=== PATIENT | female | born 1945 | race Caucasian/White ===

== ENCOUNTER 2018-06-04 18:31 | Inpatient (IN) | payer MEDICARE ==
--- NOTE | 2018-06-04 19:26 | CT ---
CT OF HEAD NONCONTRAST: 06/04/18 INDICATIONS: Fall with head injury, pain. FINDINGS: Parenchymal volume loss is present. Ventricular system is age appropriate in size. There is no eviden ce of acute intracranial hemorrhage, mass effect, or midline shift. Calvarium is intact. No fluid lev el of the visualized paranasal sinuses. IMPRESSION: No acute intracranial hemorrhage or mass effect. Prominence of CHF related to parenchymal volume loss. POS: [facility]
--- NOTE | 2018-06-04 19:30 | CT ---
CT CERVICAL SPINE WITHOUT CONTRAST: 06/04/18 HISTORY: Injury. Trauma. Fall. COMPARISON: None. FINDINGS: There is severe degenerative changes of both temporomandibular joints. The odontoid process is intact . The occipital condyles are intact. Mild uncinate process hypertrophy from C3-C7. No acute fracture is appreciated of the cervical spine. Likely hemangioma within the right C7 vertebral body. There is scarring in both lung apices. IMPRESSION: Degenerative changes. No acute fracture or malalignment. POS: [facility]
--- NOTE | 2018-06-04 19:32 | RAD ---
CHEST ONE VIEW 06/04/18 HISTORY: Fall. Trauma. COMPARISON: None. FINDINGS: Lungs are hyperinflated. There appears to be some mild background pulmonary edema. Heart size is enla rged. Small left effusion. IMPRESSION: Cardiomegaly and mild pulmonary edema. POS: [facility]
[2018-06-04 19:36] LABS: #Basophils 0.1 thou/uL (0.0-0.2); #Eosinphils 0.1 thou/uL (0.0-0.7); #Lymphocytes 0.9 thou/uL (1.20-3.40); #Monocytes 0.4 thou/uL (0.11-0.59); #Neutrophils 8.8 thou/uL (1.40-6.50); %Basophils 0.7 % (0.0-1.0); %Eosinophils 0.6 % (0.0-10.0); %Lymphocytes 8.5 % (21.0-51.0); %Monocytes 3.6 % (0.0-10.0); %Neutrophils 86.5 % (42.0-75.0); Hemoglobin 14.5 g/dL (12.0-16.0); Mean Corpuscular HGB CONC 32.4 g/dL (32.0-36.0); Mean Corpuscular Hemoglobin 32.3 pg (27.0-31.0); Mean Corpuscular Volume 99.7 fL (78.0-98.0); Mean Platelet Volume 7.7 fL (7.4-10.4); Platelet Count 235 thou/uL (130-400); RBC Distribution Width 11.7 % (11.5-14.5); Red Blood Cell (RBC) Count 4.48 mill/uL (4.20-5.40); White Blood Cell (WBC) Count 10.2 thou/uL (4.8-10.8)
[2018-06-04 19:44] LABS: INR-International Normal Ratio 1.1; PTT 29.9 SEC (22.9-36.1); Prothrombin Time 13.8 SEC (12.0-14.7)
[2018-06-04 19:53] LABS: ALT (SGPT) 28 U/L (8-55); AST (SGOT) 38 U/L (5-34); Albumin 4.7 g/dL (3.4-4.8); Alkaline Phosphatase 66 U/L (40-150); Anion Gap 15 mmol/L (10-20); BUN (Urea Nitrogen) 18 mg/dL (9.8-20.1); Bilirubin, Total 0.9 mg/dL (0.2-1.2); Calc. Creatinine Clearance 0 mL/min (70-130); Calcium 10.3 mg/dL (7.8-10.44); Carbon Dioxide 24 mmol/L (23-31); Chloride 103 mmol/L (98-107); Estimated GFR-MDRD 68; Globulin 3.1 g/dL (2.4-3.5); Glucose 113 mg/dL (83-110); Potassium 4.3 mmol/L (3.5-5.1); Protein, Total 7.8 g/dL (6.0-8.3); Sodium 138 mmol/L (136-145)
--- NOTE | 2018-06-04 20:26 | RAD ---
THREE VIEW LEFT WRIST SERIES: 06/04/18 INDICATION: Injury, pain. 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 Osseous irregularity at the distal radius is c onsistent with a comminuted mildly displaced intra-articular fracture. There is blunting of the ulna r styloid. IMPRESSION: Comminuted mildly displaced and intra-articular distal radial fracture. 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 Recommend orthopedic consultation. POS: [facility]
--- NOTE | 2018-06-04 20:31 | RAD ---
THREE VIEW RIGHT WRIST: 06/04/18 CLINICAL HISTORY: Fall with injury and pain. FINDINGS: There is osteoarthritis preferentially involving the first CMC joint. No acute fracture. IMPRESSION: No acute osseous abnormality of the right wrist. POS: [facility]
[2018-06-04 20:42] LABS: Bilirubin Negative (Negative); Blood, Urine Negative (Negative); Clarity Clear (Clear); Glucose, Urine (Dipstick) Negative (Negative); Leukocyte Trace (Negative); Nitrite Negative (Negative); Protein, Urine (Dipstick) Negative (Neg-Trace); Specific Gravity, Urine 1.025 (1.005-1.030); Urobilinogen 0.2 mg/dL (0.2-1.0); pH, Urine 5.5 (5.0-9.0)
[2018-06-04 20:52] LABS: Hyaline Casts/LPF 0-3 HYALINE CAST LPF (0-3 Hyaline); RBC/HPF 0-3 HPF (0-3); Squamous Epithelial 0-3 HPF (0-3)
[2018-06-04 20:53] LABS: Bacteria/HPF Rare-Few HPF (None Seen)
[2018-06-04] MEDS ORDERED: Adacel (T-DAP) 0.5 ML SYRINGE ONE (22:45)
[2018-06-04 23:07] LABS: Troponin I Less than 0.010 ng/mL (< 0.028)
[2018-06-05] MEDS ORDERED: HYDROcodone/Acetaminophen 5/325 mg Tablet PO PRN (00:07)
[2018-06-05 00:40] VITALS: BMI 24.1
[2018-06-05] MEDS: HYDROcodone/Acetaminophen 5/325 mg Tablet PO PRN ×2 (01:15→07:20)
[2018-06-05] MEDS ORDERED: HYDROcodone/Acetaminophen 7.5/325 mg Tablet PO PRN (10:12)
[2018-06-05 10:44] LABS: #Basophils 0.1 thou/uL (0.0-0.2); #Lymphocytes 0.9 thou/uL (1.20-3.40); #Monocytes 0.8 thou/uL (0.11-0.59); #Neutrophils 6.1 thou/uL (1.40-6.50); %Basophils 0.6 % (0.0-1.0); %Eosinophils 0.5 % (0.0-10.0); %Lymphocytes 11.4 % (21.0-51.0); %Monocytes 9.6 % (0.0-10.0); %Neutrophils 77.8 % (42.0-75.0); Hemoglobin 12.8 g/dL (12.0-16.0); Mean Corpuscular HGB CONC 33.9 g/dL (32.0-36.0); Mean Corpuscular Hemoglobin 33.7 pg (27.0-31.0); Mean Corpuscular Volume 99.4 fL (78.0-98.0); Mean Platelet Volume 7.4 fL (7.4-10.4); Platelet Count 201 thou/uL (130-400); RBC Distribution Width 11.8 % (11.5-14.5); Red Blood Cell (RBC) Count 3.78 mill/uL (4.20-5.40); White Blood Cell (WBC) Count 7.9 thou/uL (4.8-10.8)
[2018-06-05 10:59] LABS: Anion Gap 14 mmol/L (10-20); BUN (Urea Nitrogen) 18 mg/dL (9.8-20.1); Calc. Creatinine Clearance 72 mL/min (70-130); Calcium 9.2 mg/dL (7.8-10.44); Carbon Dioxide 23 mmol/L (23-31); Chloride 103 mmol/L (98-107); Estimated GFR-MDRD 78; Glucose 144 mg/dL (83-110); Potassium 3.8 mmol/L (3.5-5.1); Sodium 136 mmol/L (136-145)
--- NOTE | 2018-06-05 11:34 | ULT ---
CAROTID DOPPLER ULTRASOUND: Date: 06/05/18 HISTORY: Syncope. COMPARISON: None. FINDINGS: There is antegrade flow to both vertebral arteries. No elevated peak systolic velocities. Right ICA/CCA ratio is 0.66. Left ICA/CCA ratio is 0.97. IMPRESSION: No hemodynamically significant stenosis. POS: [facility]
--- NOTE | 2018-06-05 13:12 | MRI ---
MRI BRAIN NONCONTRAST: Date: 06/05/18 HISTORY: Fall. Head injury. FINDINGS: There is no evidence of acute intracranial hemorrhage or infarct. Mild diffuse cortical atrophy is ag ain demonstrated. There is no mass effect or shift of midline structures. Visualized paranasal sinuse s remain well aerated. IMPRESSION: No acute intracranial abnormalities are demonstrated. POS: [facility]
[2018-06-05] MEDS: HYDROcodone/Acetaminophen 7.5/325 mg Tablet PO PRN (13:53)
--- NOTE | 2018-06-05 14:38 | HP ---
PRIMARY CARE PHYSICIAN: Out of town. CHIEF COMPLAINT: Syncope with fall. HISTORY OF PRESENT ILLNESS: Ms. Javier is a very pleasant 72-year-old female who was seen in the ER on 06/04/2018 after she apparently fell. Reports that she was walking her dog, had crossed the street near her daughter's house and does not remember anything else. She does not remember the fall. She does not remember any dizziness. She does not remember tripping. The next thing she remembers is she had managed to get back to her daughter's house, had unleashed the dog, had some temporary confusion, and then she said then, she noticed both her hands and wrists were painful. She noted some blood on her face when she went to go wash up, is when she said everything kind of came back into focus. The patient did fall on her face, has abrasions to both knees. Left wrist on x-rays, a comminuted, mildly displaced distal radial fracture. She has bruising on the lateral aspect of her right wrist. She has facial abrasions. The patient reports that she had put her teeth back into place, both anterior maxillary incisors. The patient underwent a cervical spine CT that showed degenerative changes, but no acute fracture or malalignment. Brain CT, no acute intracranial hemorrhage or mass effect. Prominence of CHF related to parenchymal volume loss. She also had a chest x-ray, which showed some cardiomegaly and mild pulmonary edema. Right wrist x-ray showed no acute osseous abnormality. Based on presentation history, the patient was admitted to the Observation Unit. Past medical history of relevance, the patient does have a history of atrial fibrillation and she is on Eliquis, and also takes sotalol, sulfasalazine, metoprolol to current medical management. The patient does report an echocardiogram in [place] close to a year ago, which she reports lab clerk said was fine. She does have a heart murmur that her lab clerk is monitoring. The patient does report a probable TIA within the last several years. Reports that she had double vision, and no other symptoms. Does report that she exercises every day typically, but she has been away from home and visiting her daughter and is not used to her exercise equipment. Reports that because she has not felt like she has not been exercising as she normally does, she did not quite have the stamina that she normally does. Reports some mild dizziness in the last several weeks. No changes to her medication for several years. PAST MEDICAL HISTORY: As above, atrial fibrillation, hypertension, microscopic colitis, TIA. FEMALE SURGICAL HISTORY: D and C's, she has had 40 years ago. SOCIAL HISTORY: The patient drinks wine every day, less than five drinks per day. Has no smoking history. Denies illicit drug use. PAST FAMILY HISTORY: She said her father in his 90s from a heart attack. Mother of cancer in her 60s. KNOWN ALLERGIES: None. CURRENT MEDICATIONS: 1. Sulfasalazine 250 mg b.i.d. 2. Sotalol 160 mg b.i.d. 3. Eliquis 2.5 mg b.i.d. 4. Metoprolol 25 mg b.i.d. 5. Lorazepam 0.5 mg as needed. 6. Loperamide 2 mg as needed. 7. Melatonin 3 mg once at bedtime. 8. Calcium citrate 500 mg once a day. 9. Coenzyme Q 100 mg once a day. REVIEW OF SYSTEMS: EYES: No eye pain. Does report a headache behind her eyes. Does have some ecchymosis around her left orbit. ENT: Reports some loose front teeth. Does have abrasions to her upper and lower lips. Denies sore throat. Denies rhinorrhea. CARDIOVASCULAR: Denies chest pain. Denies chest injury. Denies any palpitations. RESPIRATORY: Denies shortness of breath. Does report some tenderness to right lower chest wall. GASTROINTESTINAL: Denies any abdominal pain. No nausea, vomiting, diarrhea, or constipation. GENITOURINARY: Female. Denies any hematuria, hesitancy, urgency. MUSCULOSKELETAL: Reports pain in both wrists, pinky side of right hand, abrasions to bilateral knees. Denies any neck pain or injury. SKIN: Abrasions noted as above. NEUROLOGIC: The patient denies focal weakness, mental status changes, other than as mentioned above. PSYCH: Denies any changes. Denies any depression, anxiety, although she does report that she is a recent the does deal with bouts of grief. PHYSICAL EXAMINATION: VITAL SIGNS: Temperature is 99.3, pulse 64, respirations 14, pulse ox is 92% on room air, blood pressure 122/46. CONSTITUTIONAL: The patient is in no apparent distress. Does appear in mild pain distress, primarily to face. Abrasions, left wrist. HEENT: Head is atraumatic and normocephalic. Abrasions as mentioned above. Eyes, eyelids, left eyelid in particular is swollen. Pupils are equally round and reactive to light. Extraocular muscles are intact. There is no ocular trauma. Does have abrasions and some ecchymosis noted below the left orbit. ENT, mucous membranes are normal. Ecchymosis to inner upper and lower lip. Injured teeth as noted above, which are mildly loose, but put back into place. Does have a tiny chip on right incisor. Two vertical lacerations on the forehead 2 cm in length. They were well-approximated. Upper and lower lips are abraded and bruised with some punctate lacerations to the upper lip with some deep abrasions. No visible foreign body or deep injury. Mild abrasion on the top of her nose. NECK: Normal range of motion. Trachea is midline. RESPIRATORY EXAM: No respiratory distress. Breath sounds are clear. CARDIOVASCULAR: Normal sinus, regular rate and rhythm. Heart murmur is noted. ABDOMEN: Soft, nontender. PELVIC: No tenderness to bilateral iliac crest pressure. Full range of motion. BACK: No tenderness or percussion to entire spine. EXTREMITIES: Upper extremity, focal swelling at the ulnar right wrist and ecchymosis tenderness ulnar and radial left wrist, which is currently in a splint. Lower extremity, superficial abrasions to both anterior knees. Full range of motion. No laxity at either knee is noted. Full strength. Pulses are equal bilaterally. No pedal edema is noted. NEURO: Normal mental status. Normal orientation. Is oriented to person, place, and time. No focal motor or sensory deficits. SKIN: Warm, dry, and intact. Abrasions as noted above. LABORATORY DATA: EKG; the patient is in normal sinus rhythm, beats per minute were 67. [place] is normal. Nonspecific T-wave abnormality. Pertinent labs; urine positive for ketones, trace leukocyte esterase, white blood cell 4 to 6, bacteria rare. Urine will be sent off for culture. Sodium is 138, potassium 4.3, gap is 15, BUN is 18, creatinine is 0.82, estimated GFR is 68, glucose 113, calcium 10.3. Troponin x3 are undetectable. Liver enzymes are unremarkable. Coag, PT is 13.81. INR is 1.1. APTT is 29.9. White blood cell count 10.2, hemoglobin 14.5, hematocrit 44.6, MCV 99.7, MCH 32.3. PLAN AND ASSESSMENT: 1. Syncope. Based on her history within the last two years of a transient ischemic attack, we will order an MRI of the brain, also carotid ultrasound, and echocardiogram. We will ask Cardiology to consult. 2. Distal radial fracture of the left arm. We will continue the patient in a splint. We will elevate, off her pain medication. 3. Hypertension. We will continue home medications. We will trend orthostatic vital signs. 4. History of atrial fibrillation. We will continue Eliquis. 5. Hospital course will be dependent on clinical findings. Job ID: [id number]
[2018-06-05] MEDS: Ondansetron PF 4 MG/2 ML Vial IVP PRN (16:39)
[2018-06-05] MEDS ORDERED: Apixaban 2.5 MG TAB PO SCH (21:00)
[2018-06-05] MEDS: diphenhydrAMINE 12.5 MG/5 ML UDCUP PO SCH (21:08)
[2018-06-05] MEDS: sulfaSALAzine 500 MG TAB PO SCH (21:08)
[2018-06-05] MEDS: Sotalol HCl 80 MG TAB PO SCH (21:09)
[2018-06-05] MEDS: Lorazepam 0.5 MG TAB PO SCH (21:09)
[2018-06-05] MEDS: Melatonin 3 MG TAB PO SCH (21:10)
[2018-06-05] MEDS: Loperamide HCl 2 MG CAP PO SCH (21:10)
[2018-06-05] MEDS: Famotidine 20 MG TAB PO SCH (21:11)
--- NOTE | 2018-06-05 21:34 | CON ---
DATE OF CONSULTATION: 06/05/2018 REASON FOR CONSULTATION: 72-year-old female with syncope. HISTORY OF PRESENT ILLNESS: This very unfortunate 72-year-old female with a history of atrial fibrillation which has been intermittent, been followed by a application analyst in [place]. She has been living here for about last one month with her daughter. She was out walking the dog yesterday when she had no recollection of what happened, but then she did not even remember going home, but apparently she fell and had a syncopal episode. She then went home and noted she had blood all over her face and had significant problems. She pushed her teeth in and had abrasions on her knees and had significant perioral abrasions as well as across the bridge of her nose and was brought to the emergency room. She has had in the past some lightheadedness and shortness of breath. She has atrial fibrillation, for which she has been treated with sotalol as well as metoprolol. She is on 160 mg b.i.d. of sotalol. She tells me that she has had about 4 months ago an echocardiogram which showed that she had aortic valve problem, which I suspect is aortic valve regurgitation and she has not had any other significant abnormalities. She had stress testing many years ago, but has had none recently, but she denies any chest pain. She has been exercising recently and was on elliptical at home, but not had any significant shortness of breath. She does get mildly short of breath, but not enough that would indicate any severe aortic valve stenosis. PAST MEDICAL HISTORY: Significant for atrial fibrillation for about 40 years and history of some type of colitis. She has had no history of hypercholesterolemia, diabetes, or tobacco abuse. She has mild hypertension which has been treated medically. SOCIAL HISTORY: She is a . She no longer smokes. She has a glass of wine a day. FAMILY HISTORY: Noncontributory at this time. There is some family history of atrial fibrillation of which she has a brother who has a pacemaker. ALLERGIES: SHE IS ALLERGIC TO ADHESIVES. MEDICATIONS: Prior to admission included; 1. Sulfasalazine. 2. Sotalol. 3. Eliquis. 4. Metoprolol. 5. Lorazepam. 6. Loperamide. 7. Melatonin. 8. Calcium. 9. CoQ10. Her sotalol is 160 mg b.i.d. and the metoprolol is 25 mg b.i.d. REVIEW OF SYSTEMS: 12-point review of systems unremarkable except for occasional diarrhea associated with Crohn's disease or her colitis and she wears reading glasses and she had the episode of syncope, which she has had no syncope in the past. PHYSICAL EXAMINATION: GENERAL: Reveals a well-developed, well-nourished female, in no acute distress. She does have evidence of trauma of the head after the fall. VITAL SIGNS: Blood pressure 132/57; heart rate is anywhere between 58 to 62, shows a sinus rhythm; she is afebrile; respiratory rate is 14. NECK: Her carotid pulses are present. There are no bruits. CHEST: Clear to auscultation without rales, rhonchi, or wheezing. CARDIOVASCULAR: Reveals a regular rate and rhythm. Normal S1, S2. She has no S3 or S4. She has aortic valve regurgitation murmur of the aortic area. Otherwise, there were no significant murmurs, heaves, thrills, bruits, or rubs. ABDOMEN: Soft and nontender. Positive bowel sounds are present. No organomegaly or masses noted. Femoral pulses are present. EXTREMITIES: Showed no clubbing or cyanosis. She does have some bruising of both knees and abrasions, but otherwise unremarkable. She has overall normal strength and tone. Pulses are present. NEUROLOGIC: She appears to be fully sound and no evidence of any focal motor deficits. Her EKG shows a sinus rhythm with no acute changes. She has remained in sinus rhythm since being here in the hospital, but heart rate has been in the 50s, she did tell me that at home, her heart rates anywhere between the 40s to 60s. She has a monitor which she uses with her smart phone and she did share with the tracings, which does indicate intermittent atrial fibrillation bradycardia with occasional PACs. Her heart rates have been now in the 40s when she was awake. LABORATORY DATA: Shows hemoglobin of 12.8, WBC of 7.9, and platelet count was 201. Chemistries show a BUN of 18, creatinine 0.82, potassium is 4.3, blood sugar was 113, increased up to 144. Cardiac enzymes are negative. IMPRESSION: 1. Syncopal episode, which maybe associated with atrial fibrillation, perhaps she was in atrial fibrillation, then which she converted from atrial fibrillation back to sinus rhythm. She had a pause which was longer enough to cause her to have a syncopal episode. She is on sotalol 160 mg b.i.d. as well as metoprolol 25 mg b.i.d. At this time, I will stop the metoprolol. We will continue to use the Betapace, the sotalol to see whether or not she continues to maintain sinus rhythm. I suspect at some point in time, she will need to undergo pacemaker insertion due to the bradycardia and possible pauses as she has had documented bradycardia by evaluation of the monitor that she has with her downloaded onto her iPad. I did review these and certainly heart rates were in the 40s at times when she is awake and she does occasionally have atrial fibrillation and sometimes it is sinus bradycardia. EKG appears to be actually even a junctional rhythm. Otherwise, she does appear to be stable. She denies any chest pain or significant shortness of breath and I will discuss her case with site identification specialist here, but I suspect she should best be served by undergoing a pacemaker insertion. The other option would be to place a LINQ implantable loop recorder to see whether or not she has any significant bradycardia or pauses. If she has another syncopal episode as the device that she has for monitoring of her heart rate requires that she hold her hands on the device and if she has passed out or had a syncopal episode, then she is obviously unable to do that. There is an application in the smart phone which will actually go back and monitor some of these, but is not accurate enough to determine whether not there are any significant pauses. 2. History of aortic valve regurgitation. There may also some associated aortic valve stenosis. I do not hear any significant aortic valve stenosis or murmur. However, we will evaluate the echocardiogram which is not yet available. 3. History of most likely left distal radial fracture which she suffered in the fall. This will be dealt with by the Orthopedics and once the swelling has decreased, she may need to undergo further treatment of this. At this time, she is in an immobilizer to decrease further damage of the wrist. We will be more than happy to continue to follow the patient with you. Once I review the echocardiogram, then further recommendations will follow and also discuss her tracings with the site identification specialist, but I am highly suspicious that she will need to undergo pacemaker insertion. Job ID: [id number]
[2018-06-06 07:09] LABS: #Eosinphils 0.1 thou/uL (0.0-0.7); #Neutrophils 5.3 thou/uL (1.40-6.50); %Basophils 0.6 % (0.0-1.0); %Eosinophils 1.2 % (0.0-10.0); %Lymphocytes 13.6 % (21.0-51.0); %Monocytes 13.2 % (0.0-10.0); %Neutrophils 71.5 % (42.0-75.0); Mean Corpuscular HGB CONC 33.9 g/dL (32.0-36.0); Mean Corpuscular Hemoglobin 33.9 pg (27.0-31.0); Mean Platelet Volume 7.5 fL (7.4-10.4); Platelet Count 189 thou/uL (130-400); RBC Distribution Width 11.6 % (11.5-14.5); Red Blood Cell (RBC) Count 3.54 mill/uL (4.20-5.40); White Blood Cell (WBC) Count 7.5 thou/uL (4.8-10.8)
[2018-06-06 07:16] LABS: Anion Gap 11 mmol/L (10-20); BUN (Urea Nitrogen) 15 mg/dL (9.8-20.1); Calc. Creatinine Clearance 76 mL/min (70-130); Calcium 8.8 mg/dL (7.8-10.44); Carbon Dioxide 25 mmol/L (23-31); Cardiac Risk 4.5 (Less than 4.5); Chloride 103 mmol/L (98-107); Cholesterol 215 mg/dl (< 200 Desired); Estimated GFR-MDRD 82; Glucose 94 mg/dL (83-110); HDL Cholesterol 48 mg/dL (>60 Neg Risk); LDL Cholesterol, Calculated 147 mg/dL; Potassium 3.7 mmol/L (3.5-5.1); Sodium 135 mmol/L (136-145); Triglycerides 98 mg/dL (Less than 150)
[2018-06-06] MEDS ORDERED: GLUCOSAMINE SULFATE 1000 MG PO SCH (09:00)
[2018-06-06] MEDS: Ubidecarenone 50 MG CAP PO SCH (09:02)
[2018-06-06] MEDS: Multivit, Therapeutic 1 TAB PO SCH (09:02)
[2018-06-06] MEDS: Sotalol HCl 80 MG TAB PO SCH ×2 (09:02→21:32)
[2018-06-06] MEDS: sulfaSALAzine 500 MG TAB PO SCH ×2 (09:03→21:36)
[2018-06-06] MEDS: Famotidine 20 MG TAB PO SCH ×2 (09:03→21:34)
[2018-06-06] MEDS: HYDROcodone/Acetaminophen 7.5/325 mg Tablet PO PRN (09:12)
--- NOTE | 2018-06-06 11:12 | PDOC.CTH ---
Cardiology Progress Note - Subjective The pt seen and examined. No overnight events. No cardiac complaints. - Objective Vital Signs Temp Pulse Resp BP Pulse Ox 06/06/18 09:02 62 06/06/18 04:01 98.3 F 57 L 12 109/38 L 97 06/06/18 00:55 95 06/05/18 23:52 99.1 F 61 15 96/41 L 90 L Weight 149 lb 12.8 oz 06/05/18 06/06/18 06/07/18 06:59 06:59 06:59 Intake Total 520 870 Output Total 1350 Balance 520 -480 - Physical Examination General/Neuro: alert & oriented x3 Neck: no JVD present Lungs: CTA Heart: other: (irregular) Abdomen: soft Extremities: other: (No edema) - Telemetry Telemetry Rhythm: Afib 70-90s - Labs Result Diagrams: 06/06/18 06:06 06/06/18 06:06 Troponin/CKMB Troponin I 0.010 ng/mL (< 0.028) 06/05/18 01:41 - Assessment/Plan 1. syncopal episode with s/p 2.7 sec pause on 06/05/2018 - Plan for PM placement by Dr Escalante 2. Afib. intermittent -Pt. now in NSR. Controlled with Sotalol; not on OAC at this moment. Holding for pacemaker in AM 3. - Echo on 06/05/2018 showed mild-mod with area of 1.2 sq cm 4. HTN - stable MAR reviewed Pt. seen and eval. by me. I agree with the A/P by the CLINICAL LEADER. Discussed pacer implant indications,procedure and risks.. Chest clear, RRR. Review of Systems - Review of Systems Constitutional: reports: no symptoms reported EENTM: reports: no symptoms reported Respiratory: reports: no symptoms reported Cardiac (ROS): reports: no symptoms reported ABD/GI: reports: no symptoms reported : reports: no symptoms reported Musculoskeletal: reports: other (pain from fx)
--- NOTE | 2018-06-06 14:11 | PDOC.PN ---
- Subjective Encounter Start Date: 06/06/18 Encounter Start Time: 14:08 Patient lying in bed, no events over night. No complaints at this time. Denies chest pain, shortness of breath or abdominal pain. No further syncopal like episodes. Cardiology planning PM tomorrow. - Objective MAR Reviewed: Yes Vital Signs & Weight: Vital Signs (12 hours) Temp Pulse Resp BP BP BP BP 06/06/18 09:02 62 06/06/18 08:00 98.3 F 62 16 130/66 110/53 L 122/47 L 06/06/18 04:01 98.3 F 57 L 12 109/38 L Pulse Ox 06/06/18 09:02 06/06/18 08:00 93 L 06/06/18 04:01 97 Weight Weight 149 lb 12.8 oz I&O: 06/05/18 06/06/18 06/07/18 06:59 06:59 06:59 Intake Total 520 870 240 Output Total 1350 Balance 520 -480 240 Result Diagrams: 06/06/18 06:06 06/06/18 06:06 Radiology Reviewed by me: Yes Phys Exam - Physical Examination Constitutional: NAD HEENT: PERRLA, moist MMs, sclera anicteric, TM's clear, oral pharynx no lesions Neck: no nodes, no JVD, supple, full ROM Respiratory: no wheezing, no rales, no rhonchi, clear to auscultation bilateral Cardiovascular: RRR, no significant murmur, no rub Gastrointestinal: soft, non-tender, no distention, positive bowel sounds Musculoskeletal: no edema, pulses present Splint left arm noted Neurological: non-focal, normal sensation, moves all 4 limbs Lymphatic: no nodes Psychiatric: normal affect, A&O x 3 Skin: no rash, normal turgor, cap refill <2 seconds Deviation from normal: Diffuse ecchymoses noted, abrasions noted to bilateral knees Dx/Plan (1) Syncope Code(s): R55 - SYNCOPE AND COLLAPSE Status: Acute (2) A-fib Code(s): I48.91 - UNSPECIFIED ATRIAL FIBRILLATION Status: Acute (3) HTN (hypertension) Code(s): I10 - ESSENTIAL (PRIMARY) HYPERTENSION Status: Acute (4) Aortic stenosis Code(s): I35.0 - NONRHEUMATIC AORTIC (VALVE) STENOSIS Status: Acute (5) Radial fracture Code(s): S52.90XA - UNSP FRACTURE OF UNSP FOREARM, INIT FOR CLOS FX Status: Acute - Plan cont current plan of care * Cardiology services following, plan for PM tomorrow * Continue medical management * Walking program * Splint on left arm for hx of radial fx * Monitor vitals and labs
[2018-06-06] MEDS: Acetaminophen 325 MG TAB PO PRN ×2 (14:43→21:33)
[2018-06-06] MEDS: Ondansetron PF 4 MG/2 ML Vial IVP PRN (14:43)
[2018-06-06] MEDS: Loperamide HCl 2 MG CAP PO SCH (21:34)
[2018-06-06] MEDS: diphenhydrAMINE 12.5 MG/5 ML UDCUP PO SCH (22:59)
[2018-06-06] MEDS: Lorazepam 0.5 MG TAB PO SCH (23:00)
[2018-06-06] MEDS: Melatonin 3 MG TAB PO SCH (23:00)
[2018-06-07 06:21] LABS: #Eosinphils 0.1 thou/uL (0.0-0.7); #Lymphocytes 1.3 thou/uL (1.20-3.40); #Monocytes 0.9 thou/uL (0.11-0.59); #Neutrophils 3.7 thou/uL (1.40-6.50); %Basophils 0.5 % (0.0-1.0); %Eosinophils 1.8 % (0.0-10.0); %Lymphocytes 21.7 % (21.0-51.0); %Monocytes 14.5 % (0.0-10.0); %Neutrophils 61.4 % (42.0-75.0); Hemoglobin 12.1 g/dL (12.0-16.0); Mean Corpuscular HGB CONC 34.2 g/dL (32.0-36.0); Mean Corpuscular Hemoglobin 34.1 pg (27.0-31.0); Mean Corpuscular Volume 99.8 fL (78.0-98.0); Mean Platelet Volume 7.3 fL (7.4-10.4); Platelet Count 187 thou/uL (130-400); RBC Distribution Width 11.5 % (11.5-14.5); Red Blood Cell (RBC) Count 3.54 mill/uL (4.20-5.40)
[2018-06-07] MEDS ORDERED: Heparin 0 ML ONE (06:34)
[2018-06-07 06:41] LABS: Anion Gap 12 mmol/L (10-20); BUN (Urea Nitrogen) 10 mg/dL (9.8-20.1); Calc. Creatinine Clearance 78 mL/min (70-130); Calcium 8.8 mg/dL (7.8-10.44); Carbon Dioxide 25 mmol/L (23-31); Chloride 103 mmol/L (98-107); Estimated GFR-MDRD 85; Glucose 98 mg/dL (83-110); Potassium 3.5 mmol/L (3.5-5.1); Sodium 136 mmol/L (136-145)
[2018-06-07] MEDS ORDERED: CEFAZOLIN 2 GM/50 ML BAG ONE (06:42)
[2018-06-07] MEDS ORDERED: Gentamicin 80 MG/2 ML VIAL ONE (06:42)
[2018-06-07] MEDS ORDERED: CEFAZOLIN 1 GM VIAL ONE (06:42)
[2018-06-07] MEDS ORDERED: Lidocaine 1% (PF) 30 ML VIAL ONE (06:59)
[2018-06-07] MEDS ORDERED: Midazolam HCl 2 mg/2 ml Vial ONE (07:26)
[2018-06-07] MEDS ORDERED: Acetaminophen/Codeine 30-300mg Tablet PO PRN (08:28)
--- NOTE | 2018-06-07 08:47 | PDOC.CTH ---
Cardiology Progress Note - Subjective No new events.No c/o - Objective Vital Signs Temp Pulse Resp BP BP Pulse Ox 06/07/18 08:18 98.8 F 63 20 142/48 H 95 06/07/18 05:50 98.6 F 62 16 120/43 L 92 L 06/07/18 00:01 98.6 F 62 16 146/56 H 96 06/06/18 21:32 65 Weight 149 lb 12.8 oz 06/06/18 06/07/18 06/08/18 06:59 06:59 06:59 Intake Total 870 960 50 Output Total 1350 1500 Balance -480 -540 50 - Physical Examination General/Neuro: alert & oriented x3 Neck: no JVD present Lungs: CTA Heart: RRR Abdomen: NT/ND, soft - Labs Result Diagrams: 06/07/18 05:55 06/07/18 05:55 Troponin/CKMB Troponin I 0.010 ng/mL (< 0.028) 06/05/18 01:41 - Assessment/Plan 1. syncopal episode with s/p 2.7 sec pause on 06/05/2018 - Plan for PM placement by Dr Escalante today. Probable d/c later today. f/u in 7-10 days in office. 2. Afib. intermittent -Pt. now in NSR. Controlled with Sotalol; not on OAC at this moment. Resume in AM 3. - Echo on 06/05/2018 showed mild-mod with area of 1.2 sq cm 4. HTN - stable MAR reviewed
[2018-06-07] MEDS: Ubidecarenone 50 MG CAP PO SCH (09:08)
[2018-06-07] MEDS: sulfaSALAzine 500 MG TAB PO SCH (09:08)
[2018-06-07] MEDS: Famotidine 20 MG TAB PO SCH (09:09)
[2018-06-07] MEDS: Sotalol HCl 80 MG TAB PO SCH (09:09)
[2018-06-07] MEDS: Multivit, Therapeutic 1 TAB PO SCH (09:09)
[2018-06-07] MEDS: Acetaminophen 325 MG TAB PO PRN ×2 (09:13→13:22)
--- NOTE | 2018-06-07 12:37 | RAD ---
TWO VIEW CHEST: Comparison: 06-04-18 FINDINGS: The cardiac silhouette is prominent. Mild interstitial prominence is seen bilaterally. No lobar conso lidation, effusion, or pneumothorax. IMPRESSION: CHF with mild interstitial opacification. POS: [facility]
[2018-06-07] MEDS ORDERED: traMADol HCl 50 MG TAB PO PRN (14:00)
[2018-06-07 15:28] VITALS: BP 122/46; TEMP 98.2
--- NOTE | 2018-06-07 15:48 | CON ---
DATE OF CONSULTATION: HISTORY OF PRESENT ILLNESS: We were asked by [facility] to see the patient. The patient on 06/04/2018 was walking her dog, when apparently she passed out and does not remember the incident whatsoever. She sustained facial bruising and some injury of soft tissue to her right wrist and a fractured left distal radius. It was also found that she had a heart issue and pacemaker was placed today. She does not remember any of the events. She was seen at [facility] and transferred here for further care. PAST MEDICAL HISTORY: Atrial fibrillation, hypertension, colitis, and TIA. PAST SURGICAL HISTORY: D and C. FAMILY HISTORY: ID, cancer. SOCIAL HISTORY: Has occasional glass of wine, sometimes daily. Nonsmoker. No drug use. ALLERGIES: NONE. CURRENT MEDICATIONS: 1. Sulfasalazine. 2. Sotalol. 3. Eliquis. 4. Metoprolol. 5. Lorazepam. 6. Loperamide. 7. Melatonin. 8. Calcium citrate. 9. Coenzyme. REVIEW OF SYSTEMS: Denies any chest pain. Does have complaints of right wrist pain, left wrist pain and some forearm pain, and multiple areas of bruising to the face. Other than that, denies any respiratory issues, bowel or bladder problems. Just aches and pains from her recent fall. Rest review of systems negative. PHYSICAL EXAMINATION: GENERAL: Well-nourished, well-developed female, resting in bed. Family at bedside. Speech clear, fluent. Oriented x3. HEENT: Face with bruising, some swelling, but otherwise symmetric. Tongue is midline. NECK: Supple. NECK: Trachea midline. RESPIRATORY: Breathing well. No distress. EXTREMITIES: Upper extremities equal size, shape, symmetry, normal bulk and tone with exception to both wrists are swollen. Left wrist splint taken down. She does have some increased swelling to the area there. She has great sensations to both hands and bilateral pulses are intact. Splint rewrapped on the patient's arm. We freed up her thumb, which is much happier and beneficial for her. Lower extremities; bilateral lower extremities equal size, shape, symmetry, normal bulk and tone. IMAGING DATA: X-rays showed no fracture on the right wrist. I reviewed x-rays on the left wrist pain, she does have a distal radial fracture in good alignment. ASSESSMENT: 1. Fall secondary to cardiac issues. 2. Left distal wrist fracture. PLAN: Again, I unwrapped the splint. I evaluated the skin, but looks okay except for some swelling, bruising. I rewrapped it. Freed up her thumb, which was included in the splint and she tolerated this well. As for other problems, she had pacemaker paced today and per nurse, family, and, the patient, ready to discharge to home. She is not from the area. She is from [place], but she is going to stay with her family for the time being. I would like to see her back in 10 to 14 days, possibly rewrap the splint versus cast versus Velcro wrist splint. I explained the plan to the patient. She is going to keep it clean and dry and nonweightbearing and she and the family understands this. If there are any questions or concerns, they can call and I will give them our contact numbers and followup information. Job ID: [id number]
[2018-06-08] MEDS ORDERED: Apixaban 2.5 MG TAB PO SCH (09:00)
--- NOTE | 2018-06-08 11:21 | CCL ---
PACEMAKER PLACEMENT: DATE OF PROCEDURE: 06/07/2018. 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 She was a dvised to undergo pacemaker insertion. She was taken to the cardiac [facility] where she underwent the procedure without difficulties or compl ications. She was implanted with a dual-chamber pacemaker from [employer] with 2 screw-in leads, 1 in the atrium and 1 in the ventricle. The pacemaker was set with the upper rate of 120 and the lower r ate was set at 60. She was implanted with an MRI compatible device with atrial therapies. She has h ad a history of TIAs in the past. The patient tolerated the procedure well without difficulties or c omplications. She was given 1 mg of Versed for conscious sedation and independent observers were pre sent during the procedure of her heart rate, blood pressure, and O2 saturations. Approximately 32 mi nutes of conscious sedation time. IMPRESSION: Elderly female with sick sinus syndrome, tachybrady with bradycardia and pauses and syncopal episode who underwent dual-chamber pacemaker insertion without difficulties or complications. POS: TRINO
== END 2018-06-07 17:38 | disposition home or self-care (01) | DRG 243 ==
LOC: SCSER 18:31 → 2SW 22:22 → OBSVTOIN 06-06 17:51
PROVIDERS: ADMIT Internal Medicine; ATTEND Internal Medicine
PROC: 0JH606Z Insertion of Pacemaker, Dual Chamber into Chest Subcutaneous Tissue and Fascia, Open Approach (ICD-10-PCS; principal; 2018-06-06)
PROC: 02H63JZ Insertion of Pacemaker Lead into Right Atrium, Percutaneous Approach (ICD-10-PCS; 2018-06-06)
PROC: 02HK3JZ Insertion of Pacemaker Lead into Right Ventricle, Percutaneous Approach (ICD-10-PCS; 2018-06-06)
DX: I48.91 Unspecified atrial fibrillation (principal); S52.90XA Unspecified fracture of unspecified forearm, initial encounter for closed fracture; I10 Essential (primary) hypertension; I35.0 Nonrheumatic aortic (valve) stenosis; W19.XXXA Unspecified fall, initial encounter; R00.0 Tachycardia, unspecified
CPT/HCPCS: 12013; 29125; 33208; 36415; 70450; 70551; 71045; 72125; 80048; 80053; 80061; 81003; 81015; 84443; 84484; 85025; 85610; 85730; 87086; 90471; 90715; 93005; 93306; 93798; 93880; 99152; 99153; C1785; C1898; J0690; J1580; J1644; J2001; J2250; J2405

== ENCOUNTER 2021-05-09 13:59 | Outpatient (CLI) | payer MEDICARE ==
[2021-05-09 16:08] LABS: Hemoglobin 13.4 g/dL (12.0-15.5); Mean Corpuscular Hemoglobin 33.3 pg (27.0-33.0); Mean Platelet Volume 9.9 fl (7.4-10.4); Platelet Count 236 10x3/uL (150-450); RBC Distribution Width 13.4 % (11.5-14.5); Red Blood Cell (RBC) Count 4.02 10x6/uL (3.90-5.03); White Blood Cell (WBC) Count 6.1 10x3/uL (3.5-10.5)
[2021-05-09 16:23] LABS: Anion Gap 13 mmol/L (10-20); BUN (Urea Nitrogen) 17 mg/dL (9.8-20.1); Calc. Creatinine Clearance 0 mL/min (70-130); Calcium 9.4 mg/dL (7.8-10.44); Carbon Dioxide 27 mmol/L (23-31); Chloride 105 mmol/L (98-107); Glucose 133 mg/dL (83-110); Potassium 4.2 mmol/L (3.5-5.1); Prothrombin Time 11.2 sec (9.5-12.1); Sodium 141 mmol/L (136-145)
[2021-05-10 07:58] LABS: SARS-CoV-2 PCR by NAA Not Detected (NotDetected)
== END 2021-05-09 14:00 | disposition home or self-care (01) ==
LOC: LABBT 13:59
PROVIDERS: ATTEND Internal Medicine Cardiovascular Disease
DX: Z01.812 Encounter for preprocedural laboratory examination (principal); Z20.822 Contact with and (suspected) exposure to COVID-19
CPT/HCPCS: 80048; 85027; 85610; U0003; U0005

== ENCOUNTER 2021-05-14 06:35 | Day surgery (SDC) | payer MEDICARE ==
[2021-05-13 11:53] VITALS: BMI 24.7
[2021-05-14] MEDS ORDERED: Protamine Sulfate 50 MG/5 ML VIAL ONE (06:44)
[2021-05-14] MEDS ORDERED: Heparin 10,000 UNITS/ 10 ML VIAL ONE (06:44)
[2021-05-14] MEDS ORDERED: Heparin 25,000 units/D5W 500 ML ONE (06:44)
[2021-05-14] MEDS ORDERED: Fentanyl 100 MCG/2 ML VIAL ONE (07:02)
[2021-05-14] MEDS ORDERED: Rocuronium Bromide 10 MG/ML (10ML VIAL) ONE (07:34)
[2021-05-14] MEDS ORDERED: PROPOFOL 200 MG/20 ML VIAL ONE (07:34)
[2021-05-14] MEDS ORDERED: Phenylephrine 10 MG/ML VIAL ONE (07:34)
[2021-05-14] MEDS ORDERED: Lidocaine 1% PF 5 ML VIAL ONE (07:34)
== END 2021-05-14 15:40 | disposition home or self-care (01) ==
LOC: CCL 06:35
PROVIDERS: ATTEND Internal Medicine Cardiovascular Disease
PROC: B246ZZ4 Ultrasonography of Right and Left Heart, Transesophageal (ICD-10-PCS; principal; 2021-05-14)
PROC: 02583ZZ Destruction of Conduction Mechanism, Percutaneous Approach (ICD-10-PCS; 2021-05-14)
PROC: B244ZZZ Ultrasonography of Right Heart (ICD-10-PCS; 2021-05-14)
PROC: 02K83ZZ Map Conduction Mechanism, Percutaneous Approach (ICD-10-PCS; 2021-05-14)
DX: I48.0 Paroxysmal atrial fibrillation (principal); I11.9 Hypertensive heart disease without heart failure; Q23.1 Congenital insufficiency of aortic valve; M81.0 Age-related osteoporosis without current pathological fracture; I49.5 Sick sinus syndrome; Z79.01 Long term (current) use of anticoagulants; Z79.899 Other long term (current) drug therapy; Z91.048 Other nonmedicinal substance allergy status; Z95.0 Presence of cardiac pacemaker
CPT/HCPCS: 85347; 93005; 93010; 93312; 93613; 93656; 93657; 93662; C1732; C1759; C1776; C1894; C2630; J1644; J2370; J2704; J2720; J3010